=== PATIENT | female | born 1965 | race Caucasian/White ===

== ENCOUNTER → 2018-04-16 | Outpatient (CLI) | payer OTHER ==
[~2018-04-16] MED LIST: ACETAMINOPHEN325 M1; ADVAIR 100-501 EACH INH; ARIXTRA SQ; ASMANEX INH; BENTYL 20 MG TA20 M1 PO; BUSPAR15 MG PO; BUSPAR30 MG PO; CIPRO; CITRATE OF MAG296 ML PO; CLEOCIN HCL300 MG PO; CLONAZEPAM; FLEXERIL PO; HYDROCODONE-AP1 EAC6 PO; IBUPROFEN 800800 M1 PO; IRON; KEFLEX500 MG PO; LEVOTHROID PO; LOVENOX; MECLIZINE 25 MG25 M1 PO; MINOCYCLINE HC100 M2 OR; MOBIC15 MG PO; MULTIPLE VITAM1 EAC3 PO; NABUMETONE 750750 M1 PO; NEURONTIN 300M300 M2 PO; NORCO 5-325 TA1 EACH PO; ONDANSETRON HCL4 M2 PO; OXYCONTIN10 M1 PO; OXYIR5 MG PO; PRILOSEC 20 MG20 MG PO; PROZAC 20 MG20 M1 PO; PROZAC20 MG/5 ML PO; ROBAXIN 750 MG750 M1 PO; SILVASORB; SYNTHROID100 MCG PO; TRAMADOL 50 MG50 MG PO; XIFAXAN 200 MG200 MG PO; ZOFRAN 4 MG ORAL4 M1 DIS; no
== END ==
LOC: M.NUC 06:58
DX: K31.89 Other diseases of stomach and duodenum (principal); R14.0 Abdominal distension (gaseous)

== ENCOUNTER → 2018-06-04 | Outpatient (CLI) | payer OTHER | LOC: M.RAD 07:58 | DX: Z12.31 Encounter for screening mammogram for malignant neoplasm of breast (principal) ==

== ENCOUNTER → 2018-06-11 | Outpatient (CLI) | payer OTHER | LOC: M.ULTRA 09:53 | DX: R10.13 Epigastric pain (principal); R11.0 Nausea; R14.0 Abdominal distension (gaseous); E03.9 Hypothyroidism, unspecified ==

== ENCOUNTER 2018-06-14 18:39 | Emergency (ER) | payer OTHER ==
[~2018-06-14] VITALS: Ht 165.1 cm; Wt 104.3 kg
[~2018-06-14 18:39] MED LIST changes: -CITRATE OF MAG296 ML PO; -NABUMETONE 750750 M1 PO; -ONDANSETRON HCL4 M2 PO; -XIFAXAN 200 MG200 MG PO
[2018-06-14] MEDS ORDERED: XIFAXAN 200 MG200 MG PO (18:47)
[2018-06-14 19:27] LABS: URINE BILIRUBIN NEGATIVE (Negative); URINE BLOOD NEGATIVE (Negative); URINE CLARITY CLEAR; URINE COLOR YELLOW; URINE GLUCOSE-RANDOM NEGATIVE (Negative); URINE KETONES NEGATIVE (Negative); URINE LEUKOCYTES NEGATIVE (Negative); URINE NITRITE NEGATIVE (Negative); URINE PROTEIN NEGATIVE (Negative); URINE UROBILINOGEN 0.2 E.U./dl (0.2-1.0)
[2018-06-14 19:28] LABS: ABSOLUTE BASOPHILS 0.1 thou/uL (0.0-0.2); ABSOLUTE LYMPHOCYTES 4.1 thou/uL (0.8-5.3); ABSOLUTE MONOCYTES 0.7 thou/uL (0.0-1.2); ABSOLUTE NEUTROPHILS 9.9 thou/uL (1.6-8.1); BASOPHILS 0.8 %; EOSINOPHILS 0.1 %; HEMOGLOBIN 13.3 gm/dL (12.0-15.0); LYMPHOCYTES 27.7 %; MCH 30.5 pg (26.0-34.0); MCHC 33.3 g/dL (28.0-37.0); MCV 91.5 fL (80.0-100.0); MONOCYTES 4.9 %; MPV 8.8 fl. (7.2-11.1); NUCLEATED RBCS 0 /100WBC; PLATELET COUNT* 309 thou/uL (150-400); POLYS 66.5 %; RBC 4.38 mil/uL (4.20-5.00); WBC 14.8 thou/uL (4.0-11.0)
[2018-06-14 19:32] LABS: ANION GAP 6 mmol/L (7-16); BUN 10 mg/dL (7-18); CALCIUM 8.6 mg/dL (8.5-10.1); CHLORIDE 106 mmol/L (98-107); CO2 28 mmol/L (21-32); CREATININE 0.9 mg/dL (0.6-1.3); GLUCOSE 94 mg/dL (70-99); POTASSIUM 3.4 mmol/L (3.5-5.1); SODIUM 140 mmol/L (136-145)
[2018-06-14 19:39] LABS: ALBUMIN 3.7 g/dL (3.4-5.0); ALKALINE PHOSPHATASE 54 U/L (46-116); LIPASE 129 U/L (73-393); SGOT 21 U/L (15-37); SGPT 44 U/L (30-65); TOTAL BILIRUBIN 0.3 mg/dL (<0.1-1.0); TOTAL PROTEIN 6.6 g/dL (6.4-8.2); TROPONIN-I LEVEL <0.06 ng/mL (<0.06)
[2018-06-14] MEDS ORDERED: NABUMETONE 750750 M1 PO (21:43)
[2018-06-14] MEDS ORDERED: ONDANSETRON HCL4 M2 PO (21:43)
[2018-06-14] MEDS ORDERED: CITRATE OF MAG296 ML PO (21:43)
[2018-06-14] MEDS ORDERED: BENTYL 20 MG TA20 M1 PO (21:43)
[2018-06-14 22:08] VITALS: BP 145/88
--- NOTE | 2018-06-15 14:40 | EKG ---
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 : 1965 Requested By: Jennifer Connolly Order Number: [id number] MD: Eliezer Caruso Measurements Intervals [place] Rate: 79 P: 17 NE: 152 QRS: -34 QRSD: 102 T: 5 QT: 424 QTc: 487 Interpretive Statements Sinus rhythm Low voltage, precordial leads Left ventricular hypertrophy Borderline prolonged QT interval Compared to ECG 10/29/2014 09:59:51 Low QRS voltage now present Left ventricular hypertrophy now present Electronically Signed On 06-15-2018 14:39:46 CDT by Eliezer Caruso [email or web address] <ELECTRONICALLY SIGNED> By: Eliezer Caruso MD, [facility] 06/15/18 1439 [id number] 54 Eliezer Caruso MD, [facility] /EPI
== END 2018-06-14 21:45 | disposition home or self-care (01) ==
LOC: M.ERS 18:39
PROVIDERS: Nurse Practitioner Family
DX: K59.00 Constipation, unspecified (principal); R11.0 Nausea; E03.9 Hypothyroidism, unspecified; Z87.01 Personal history of pneumonia (recurrent); Z88.0 Allergy status to penicillin; Z88.2 Allergy status to sulfonamides; Z88.1 Allergy status to other antibiotic agents; Z88.8 Allergy status to other drugs, medicaments and biological substances; Z96.642 Presence of left artificial hip joint

== ENCOUNTER 2020-03-23 18:02 | Inpatient (IN) | payer OTHER ==
[~2020-03-23] VITALS: Ht 162.6 cm; Wt 119.3 kg
[~2020-03-23 18:02] MED LIST changes: +CITRATE OF MAG296 ML PO; +DOXYCYCLINE 10100 MG PO; +LEVO-T100 MCG PO; -LEVOTHROID PO; +MEDROLDOSEPACK PO; +NABUMETONE 750750 M1 PO; +ONDANSETRON HCL4 M2 PO; -PRILOSEC 20 MG20 MG PO; +PRILOSEC OTC20 MG PO; -PROZAC 20 MG20 M1 PO; +PROZAC20 M1 PO; +SINGULAIR 10 MG10 M1 PO; +XIFAXAN 200 MG200 MG PO; +ZANTAC 150MG T150 MG PO
[2020-03-23 18:08] VITALS: BP 157/110
[2020-03-23] MEDS ORDERED: TRAMADOL 50 MG50 MG PO (18:11)
[2020-03-23 18:37] LABS: ABSOLUTE BASOPHILS 0.1 thou/uL (0.0-0.2); ABSOLUTE EOSINOPHILS 0.2 thou/uL (0.0-0.7); ABSOLUTE LYMPHOCYTES 3.5 thou/uL (0.8-5.3); ABSOLUTE MONOCYTES 0.8 thou/uL (0.0-1.2); ABSOLUTE NEUTROPHILS 6.3 thou/uL (1.6-8.1); BASOPHILS 0.7 %; EOSINOPHILS 1.7 %; HEMATOCRIT 33.6 % (37.0-47.0); HEMOGLOBIN 11.4 gm/dL (12.0-15.0); LYMPHOCYTES 32.1 %; MCH 29.8 pg (26.0-34.0); MCHC 33.9 g/dL (28.0-37.0); MCV 87.9 fL (80.0-100.0); MONOCYTES 7.4 %; MPV 7.9 fl. (7.2-11.1); NUCLEATED RBCS 0 /100WBC; PLATELET COUNT* 306 thou/uL (150-400); POLYS 58.1 %; RBC 3.82 mil/uL (4.20-5.00); RDW-CV 15.1 % (10.5-14.5); WBC 10.8 thou/uL (4.0-11.0)
[2020-03-23 18:46] LABS: CREATININE 0.9 mg/dL (0.6-1.3); POTASSIUM 3.7 mmol/L (3.5-5.1)
[2020-03-23 18:47] LABS: APTT 27.1 Seconds (25.0-31.3); INR 1.1; PROTIME 10.8 Seconds (9.20-11.50)
[2020-03-23 18:57] LABS: ALBUMIN 3.1 g/dL (3.4-5.0); TOTAL BILIRUBIN 0.4 mg/dL (<0.1-1.0); TOTAL PROTEIN 6.9 g/dL (6.4-8.2)
[2020-03-23 20:00] VITALS: BP 130/75
[2020-03-23 20:46] LABS: URINE BILIRUBIN NEGATIVE (Negative); URINE BLOOD NEGATIVE (Negative); URINE CLARITY CLEAR; URINE COLOR YELLOW; URINE GLUCOSE-RANDOM NEGATIVE (Negative); URINE KETONES NEGATIVE (Negative); URINE LEUKOCYTES-REFLEX TRACE (Negative); URINE NITRITE-REFLEX NEGATIVE (Negative); URINE PROTEIN NEGATIVE (Negative); URINE SPECIFIC GRAVITY <= 1.005 (1.005-1.030); URINE UROBILINOGEN 0.2 E.U./dl (0.2-1.0)
[2020-03-23 20:55] LABS: SQUAMOUS 0-3 Few /LPF (0-3); URINE WBC-REFLEX 0-5 Rare /HPF (0-5)
[2020-03-23 20:56] LABS: BACTERIA-REFLEX 1-9 Few /HPF (None Seen); CASTS None Seen /LPF (None Seen); CRYSTALS None Seen /LPF (None Seen); URINE RBC 0-2 Rare /HPF (0-2)
[2020-03-23 21:22] VITALS: BP 140/93
[2020-03-23] MEDS ORDERED: BUSPIRONE HCL15 MG PO (23:05)
[2020-03-23] MEDS ORDERED: METFORMIN HCL500 M3 PO (23:09)
[2020-03-24] VITALS: BP 158/64
[2020-03-24 04:00] VITALS: BP 147/77
[2020-03-24 08:00] VITALS: BP 130/85
[2020-03-24 12:00] VITALS: BP 146/89
--- NOTE | 2020-03-24 15:26 | EKG ---
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[place] : 1965 Requested By: Rosie Serna Order Number: [id number] MD: Louie Palomares Measurements Intervals [place] Rate: 101 P: 35 CO: 140 QRS: -34 QRSD: 87 T: 9 QT: 360 QTc: 467 Interpretive Statements Sinus tachycardia Left anterior fascicular block Baseline wander in lead(s) V2 Compared to ECG 06/14/2018 19:55:56 No significant changes noted Electronically Signed On 03-24-2020 15:25:33 CDT by Louie Palomares [email or web address] <ELECTRONICALLY SIGNED> By: Louie Palomares MD, FAC 03/24/20 1525 1833 1833 Louie Palomares MD, [facility] /EPI
[2020-03-24 16:00] VITALS: BP 153/87
[2020-03-24 20:00] VITALS: BP 169/91
[2020-03-25] VITALS: BP 168/90
[2020-03-25 04:00] VITALS: BP 148/94
[2020-03-25 05:28] LABS: ABSOLUTE EOSINOPHILS 0.2 thou/uL (0.0-0.7); ABSOLUTE MONOCYTES 0.6 thou/uL (0.0-1.2); ABSOLUTE NEUTROPHILS 3.3 thou/uL (1.6-8.1); BASOPHILS 0.6 %; HEMATOCRIT 33.5 % (37.0-47.0); HEMOGLOBIN 11.2 gm/dL (12.0-15.0); LYMPHOCYTES 42.3 %; MCH 29.2 pg (26.0-34.0); MCHC 33.4 g/dL (28.0-37.0); MCV 87.5 fL (80.0-100.0); MONOCYTES 8.3 %; MPV 7.4 fl. (7.2-11.1); NUCLEATED RBCS 0 /100WBC; PLATELET COUNT* 310 thou/uL (150-400); POLYS 45.8 %; RBC 3.83 mil/uL (4.20-5.00); RDW-CV 15.4 % (10.5-14.5); WBC 7.2 thou/uL (4.0-11.0)
[2020-03-25 05:46] LABS: POTASSIUM 3.8 mmol/L (3.5-5.1)
[2020-03-25 08:00] VITALS: BP 138/79
[2020-03-25 12:16] VITALS: BP 144/94
[2020-03-25 17:18] VITALS: BP 178/115
[2020-03-25 19:50] VITALS: BP 162/107
[2020-03-26] VITALS: BP 135/87
[2020-03-26 04:00] VITALS: BP 139/93
[2020-03-26 07:54] VITALS: BP 138/72
[2020-03-26 08:45] LABS: ABSOLUTE EOSINOPHILS 0.2 thou/uL (0.0-0.7); ABSOLUTE LYMPHOCYTES 2.9 thou/uL (0.8-5.3); ABSOLUTE MONOCYTES 0.6 thou/uL (0.0-1.2); BASOPHILS 0.6 %; HEMATOCRIT 32.5 % (37.0-47.0); LYMPHOCYTES 42.7 %; MCH 29.6 pg (26.0-34.0); MCHC 33.9 g/dL (28.0-37.0); MCV 87.3 fL (80.0-100.0); MONOCYTES 9.5 %; MPV 7.1 fl. (7.2-11.1); NUCLEATED RBCS 0 /100WBC; PLATELET COUNT* 333 thou/uL (150-400); POLYS 44.2 %; RBC 3.72 mil/uL (4.20-5.00); RDW-CV 15.1 % (10.5-14.5); WBC 6.9 thou/uL (4.0-11.0)
[2020-03-26 08:55] LABS: CALCIUM 8.1 mg/dL (8.5-10.1); CREATININE 0.9 mg/dL (0.6-1.3); POTASSIUM 3.7 mmol/L (3.5-5.1)
[2020-03-26] MEDS ORDERED: MINOCYCLINE HC100 M2 PO (10:09)
[2020-03-26] MEDS ORDERED: HYDROCHLOROTHIA25 M2 PO (10:09)
[2020-03-26 11:24] VITALS: BP 138/72
[2020-03-26 12:00] VITALS: BP 123/74
[2020-03-26 16:00] VITALS: BP 144/75
== END 2020-03-26 17:36 | disposition home or self-care (01) | DRG 603 ==
LOC: M.ERS 18:02 → M.2W 19:56 → M.TBA-ER 19:56 → M.2W 22:50
PROVIDERS: Internal Medicine; Personal Emergency Response Attendant; ADMIT Internal Medicine; ATTEND Internal Medicine
DX: L03.116 Cellulitis of left lower limb (principal); Z68.42 Body mass index [BMI] 45.0-49.9, adult; L03.115 Cellulitis of right lower limb; E03.9 Hypothyroidism, unspecified; Z96.642 Presence of left artificial hip joint; Z96.651 Presence of right artificial knee joint; I16.0 Hypertensive urgency; F41.9 Anxiety disorder, unspecified; E11.9 Type 2 diabetes mellitus without complications; E66.01 Morbid (severe) obesity due to excess calories; I87.8 Other specified disorders of veins; B95.62 Methicillin resistant Staphylococcus aureus infection as the cause of diseases classified elsewhere; Z86.14 Personal history of Methicillin resistant Staphylococcus aureus infection; Z88.1 Allergy status to other antibiotic agents; Z88.0 Allergy status to penicillin; Z88.2 Allergy status to sulfonamides; Z88.8 Allergy status to other drugs, medicaments and biological substances; Z79.899 Other long term (current) drug therapy